=== PATIENT | male | born 1965 | race Asian ===

== ENCOUNTER 2016-09-29 11:42 | Inpatient (IN) | payer OTHER ==
[2016-09-29 11:50] VITALS: BMI 18.1
--- NOTE | 2016-09-29 14:34 | HP ---
COWS - Scale Resting Pulse: 0= [place] 80 or Below Admission ROS BHS - HPI Allergies/Adverse Reactions: Allergies Allergy/AdvReac Type Severity Reaction Status Date / Time No Known Allergies Allergy Verified 09/29/16 12:46 - Ebola screening Have you traveled outside of the country in the last 21 days: No Have you had contact with anyone from an Ebola affected area: No Have you been sick,other than usual withdrawal symptoms: No Patient History - Patient Medical History Hx Asthma: No Hx Chronic Obstructive Pulmonary Disease (COPD): No Hx Cardiac Disorders: No Hx Hypertension: Yes Hx Seizures: No Hx Diabetes: No Hx Gastrointestinal Disorders: No Hx Genitourinary Disorders: No Hx Sexually Transmitted Disorders: No Hx Renal Disease (ESRD): No Hx Depression: No Hx Suicide Attempt: No Hx Schizophrenia: No - Patient Surgical History Past Surgical History: No - PPD History Previous Implant?: Yes Documented Results: Negative w/o proof Implanted On Prior [facility] Admission?: No - Smoking Cessation Smoking history: Former smoker Have you smoked in the past 12 months: No If you are a former smoker, when did you quit?: 2001 - Substances Abused Alcohol Route: Oral Frequency: Daily Amount used: 3-4 40 OZ BEERS Age of first use: 15 Date of Last Use: 09/29/16 Admission Physical Exam BHS - Vital Signs Vital Signs: Vital Signs - 24 hr 09/29/16 11:48 Temperature 96.1 F L Pulse Rate 78 Respiratory 18 Rate Blood Pressure 137/71 BHS Breath Alcohol Content Breath Alcohol Content: 0.090 Urine Drug Screen - Results Drug Screen Negative: Yes
--- NOTE | 2016-09-29 14:41 | HP ---
CIWA Score - CIWA Score Nausea/Vomitin-No Nausea/No Vomiting Muscle Tremors: 4-Moderate,w/Arms Extend Anxiety: 3 Agitation: 4-Moderately Restless Paroxysmal Sweats: 3 Orientation: 0-Oriented Tacttile Disturbances: 0-None Auditory Disturbances: 0-None Visual Disturbances: 0-None Headache: 1-Very Mild CIWA-Ar Total Score: 15 Admission ROS BHS - HPI Chief Complaint: I am here to detox. Allergies/Adverse Reactions: Allergies Allergy/AdvReac Type Severity Reaction Status Date / Time No Known Allergies Allergy Verified 09/29/16 12:46 History of Present Illness: pt is a 51yr old male with a history of alcohol dependence seeking detox for treatment. Exam Limitations: No Limitations - Ebola screening Have you traveled outside of the country in the last 21 days: No Have you had contact with anyone from an Ebola affected area: No Have you been sick,other than usual withdrawal symptoms: No - Review of Systems Constitutional: Chills, Diaphoresis, Weight Stable EENT: reports: No Symptoms Reported Respiratory: reports: No Symptoms reported Cardiac: reports: No Symptoms Reported GI: reports: Nausea, Poor Fluid Intake : reports: No Symptoms Reported Musculoskeletal: reports: No Symptoms Reported Integumentary: reports: Rash (psorisis legs and back) Neuro: reports: Tingling, Tremors Endocrine: reports: Excessive Sweating, Flushing, Intolerance to Cold, Intolerance to Heat Hematology: reports: No Symptoms Reported Psychiatric: reports: Judgement Intact, Mood/Affect Appropiate, Orientated x3, Agitated, Anxious, Depressed Other Systems: Reviewed and Negative Patient History - Patient Medical History Hx Anemia: No Hx Asthma: No Hx Chronic Obstructive Pulmonary Disease (COPD): No Hx Cancer: No Hx Cardiac Disorders: No Hx Congestive Heart Failure: No Hx Hypertension: Yes Hx Hypercholesterolemia: No Hx Pacemaker: No HX Cerebrovascular Accident: No Hx Seizures: No Hx Dementia: No Hx Diabetes: No Hx Gastrointestinal Disorders: No Hx Liver Disease: No Hx Genitourinary Disorders: No Hx Sexually Transmitted Disorders: No Hx Renal Disease (ESRD): No Hx Thyroid Disease: No Hx Human Immunodeficiency Virus (HIV): No (negative) Hx Hepatitis C: No (negative) Hx Depression: No Hx Suicide Attempt: No (denies) Hx Bipolar Disorder: No Hx Schizophrenia: No Other Medical History: anxiety - Patient Surgical History Past Surgical History: No - PPD History Previous Implant?: Yes Documented Results: Negative w/o proof Implanted On Prior [facility] Admission?: No PPD to be Administered?: Yes - Reproductive History Patient is a Female of Child Bearing Age (11 -55 yrs old): No - Smoking Cessation Smoking history: Former smoker Have you smoked in the past 12 months: No If you are a former smoker, when did you quit?: 2001 Hx Chewing Tobacco Use: No Initiated information on smoking cessation: No - Substance & Tx. History Hx Alcohol Use: Yes Hx Substance Use: No Substance Use Type: Alcohol Hx Substance Use Treatment: Yes - Substances Abused Alcohol Route: Oral Frequency: Daily Amount used: 3-4 40 OZ BEERS Age of first use: 15 Date of Last Use: 09/29/16 Family Disease History - Family Disease History Family Disease History: Heart Disease: Mother (), Other: Mother Admission Physical Exam [facility] - Vital Signs Vital Signs: Vital Signs - 24 hr 09/29/16 11:48 Temperature 96.1 F L Pulse Rate 78 Respiratory 18 Rate Blood Pressure 137/71 - Physical General Appearance: Yes: Appropriately Dressed, Mild Distress, Thin, Tremorous, Irritable, Sweating, Anxious HEENTM: Yes: Normal Voice Respiratory: Yes: Lungs Clear, Normal Breath Sounds, No Respiratory Distress Neck: Yes: No masses,lesions,Nodules Breast: Yes: Within Normal Limits Cardiology: Yes: Regular Rhythm, Regular Rate, S1, S2 Abdominal: Yes: Normal Bowel Sounds, Non Tender, Soft Genitourinary: Yes: Within Normal Limits Back: Yes: Normal Inspection Musculoskeletal: Yes: full range of Motion Extremities: Yes: Normal Capillary Refill, Non-Tender, Tremors Neurological: Yes: Fully Oriented, Alert, Normal Response Integumentary: Yes: Normal Color, Rash (psoriosis to legs and back) Lymphatic: Yes: Within Normal Limits - Diagnostic (1) Alcohol dependence with uncomplicated withdrawal Current Visit: Yes Status: Chronic (2) Psoriasis Current Visit: Yes Status: Chronic (3) Hypertension Current Visit: Yes Status: Chronic Qualifiers: Hypertension type: essential hypertension Qualified Code(s): I10 - Essential (primary) hypertension Cleared for Admission S - Detox or Rehab S Level of Care: Medically Managed Detox Regimen/Protocol: Librium S Breath Alcohol Content Breath Alcohol Content: 0.090 Urine Drug Screen - Results Drug Screen Negative: Yes
[2016-09-29] MEDS ORDERED: MAGNESIUM HYDROX 2400MG/30ML ORAL SUSPENSION 30 ML CUP PO PRN (14:44)
[2016-09-29] MEDS ORDERED: chlordiazePOXIDE HCL 25 MG CAPSULE PO PRN (14:44)
[2016-09-29] MEDS ORDERED: ACETAMINOPHEN 325 MG TABLET (FP) PO PRN (14:44)
[2016-09-29] MEDS ORDERED: MAG HYDROX/AL HYDROX/SIMETH 30 ML UNIT-DOSE CUP PO PRN (14:44)
[2016-09-29] MEDS ORDERED: guaiFENesin/D-METHORPHAN HB 10 ML UNIT-DOSE CUPS PO PRN (14:44)
[2016-09-29] MEDS ORDERED: P-EPHED 60MG/TRIPROLIDI 2.5MG TABLET PO PRN (14:44)
[2016-09-29] MEDS ORDERED: hydrOXYzine PAMOATE 50 MG CAPSULE (FP) PO PRN (14:44)
[2016-09-29] MEDS ORDERED: MENTHOL/PHENOL 1 EACH UD MM PRN (14:44)
[2016-09-29] MEDS ORDERED: MAGNESIUM CITRATE 300 ML BOTTLE PO PRN (14:44)
[2016-09-29] MEDS ORDERED: IBUPROFEN 400 MG TABLET (FP) PO PRN (14:44)
[2016-09-29] MEDS ORDERED: chlordiazePOXIDE HCL 25 MG CAPSULE PO ONE (14:53)
[2016-09-29] MEDS: amLODIPine BESYLATE 10 MG TABLET (FP) PO SCH (15:39)
[2016-09-29] MEDS: chlordiazePOXIDE HCL 25 MG CAPSULE PO SCH ×2 (17:17→22:16)
[2016-09-29 18:17] LABS: URINE APPEARANCE CLEAR; URINE BILIRUBIN NEGATIVE (NEGATIVE); URINE BLOOD NEGATIVE (NEGATIVE); URINE COLOR STRAW; URINE GLUCOSE (UA) NEGATIVE (NEGATIVE); URINE KETONE NEGATIVE (NEGATIVE); URINE LEUK ESTERASE NEGATIVE (NEGATIVE); URINE NITRITE NEGATIVE (NEGATIVE); URINE PROTEIN NEGATIVE (NEGATIVE); URINE UROBILINOGEN NEGATIVE E.U./dl (0.2-1.0)
[2016-09-29] MEDS: THIAMINE HCL 100 MG TABLET (FP) PO SCH (22:16)
[2016-09-29] MEDS: diphenhydrAMINE HCL 50 MG CAPSULE PO PRN (22:17)
[2016-09-30] MEDS: chlordiazePOXIDE HCL 25 MG CAPSULE PO SCH ×4 (05:57→22:16)
[2016-09-30] MEDS: PRENATAL VITAMINS W/ FOLIC ACID TABLET (FP) PO SCH (10:18)
[2016-09-30] MEDS: amLODIPine BESYLATE 10 MG TABLET (FP) PO SCH (10:18)
[2016-09-30 10:27] LABS: MCH 32.1 pg (25.7-33.7); MCHC 34.1 g/dl (32.0-35.9); MEAN CELL VOLUME 94.2 fl (80-96); PLATELET COUNT 201 K/MM3 (134-434); RDW 14.7 % (11.9-15.9); WHITE BLOOD COUNT 5.5 K/mm3 (4.0-10.0)
[2016-09-30 11:07] LABS: ALK PHOS 120 U/L (45-117); ANION GAP 14 (8-16); BILIRUBIN,TOTAL 0.8 mg/dL (0.2-1.0); CALCIUM 9.2 mg/dL (8.5-10.1); CO2 25 mmol/L (21-32); CREATININE 0.7 mg/dL (0.7-1.3); GLUCOSE,RANDOM 101 mg/dL (74-106); SGOT/AST 51 U/L (15-37); SGPT/ALT 43 U/L (12-78); TOT PROT 7.7 g/dl (6.4-8.2)
--- NOTE | 2016-09-30 13:16 | CONSULT ---
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 Substance Abuse History: - Smoking Cessation. Smoking history: Former smoker. Have you smoked in the past 12 months: No. If you are a former smoker, when did you quit?: 2001. Hx Chewing Tobacco Use: No. Initiated information on smoking cessation: No. - Substance & Tx. History. Hx Alcohol Use: Yes. Hx Substance Use: No. Substance Use Type: Alcohol. Hx Substance Use Treatment: Yes. - Substances Abused. Alcohol. Route: Oral. Frequency: Daily. Amount used: 3-4 40 OZ BEERS. Age of first use: 15. Date of Last Use: . Confirmed by patient. Medical History: Hypertension. Psychiatric History: Diagnosed with MDD and Anxiety Disorder.Prescribed lexapro (dose not recalled by patient).Mr Cardona gets psychiatric outpatient services at the [facility] in [facility].No history of psychiatric hospitalizations.Patient denies history of suicide attempts. Physical/Sexual Abuse/Trauma History: Patient denies. Additional Comment: Drug Screen is negative. Mental Status Exam - Mental Status Exam Alert and Oriented to: Time, Place, Person Cognitive Function: Good Patient Appearance: Well Groomed Mood: Hopeful, Euthymic Affect: Appropriate, Normal Range Patient Behavior: Fatigued, Appropriate, Cooperative (friendly and well-mannered ) Speech Pattern: Clear, Appropriate (bilingual) Voice Loudness: Normal Thought Process: Goal Oriented Thought Disorder: Not Present Hallucinations: Denies Suicidal Ideation: Denies Homicidal Ideation: Denies Insight/Judgement: Fair Sleep: Fair Appetite: Good (observed eating his meal) Muscle strength/Tone: Normal Gait/Station: Normal Psychiatric Findings - Problem List ([place] 1, 2,3) (1) Alcohol dependence with uncomplicated withdrawal Current Visit: Yes Status: Acute (2) MDD (major depressive disorder) Current Visit: Yes Status: Chronic (3) Hypertension Current Visit: Yes Status: Chronic Qualifiers: Hypertension type: essential hypertension Qualified Code(s): I10 - Essential (primary) hypertension (4) Psoriasis Current Visit: Yes Status: Chronic - Initial Treatment Plan Initial Treatment Plan: Psychoeducation.Detoxification.Lexapro 20 mg po daily.Confirmed by pharmacy claims of 08/21/16 @ [facility].Side effects/ benefits discussed with patient.He agrees with careplan.Observation.
--- NOTE | 2016-09-30 13:23 | EKG ---
Test Reason : Blood Pressure : / mmHG Vent. Rate : 070 BPM Atrial Rate : 070 BPM P-R Int : 174 ms QRS Dur : 084 ms QT Int : 382 ms P-R-T Axes : 066 043 049 degrees QTc Int : 412 ms POOR DATA QUALITY, INTERPRETATION MAY BE ADVERSELY AFFECTED NORMAL SINUS RHYTHM POSSIBLE LEFT ATRIAL ENLARGEMENT BORDERLINE ECG NO PREVIOUS ECGS AVAILABLE Confirmed by JACKIE KIRKPATRICK, SALO ([id number]) on 09/30/2016 1:22:56 PM Referred By: Confirmed By:SALO MEJIA MD
--- NOTE | 2016-09-30 14:29 | PN ---
S CIWA - CIWA Score Nausea/Vomitin-Mild Nausea/No Vomiting Muscle Tremors: 4-Moderate,w/Arms Extend Anxiety: 4-Mod. Anxious/Guarded Agitation: 3 Paroxysmal Sweats: 3 Orientation: 0-Oriented Tacttile Disturbances: 0-None Auditory Disturbances: 0-None Visual Disturbances: 0-None Headache: 0-None Present CIWA-Ar Total Score: 15 BHS Progress Note (SOAP) Subjective: Sweating,anxiety,tremors,restless,interrupted sleep Objective: 09/30/16 14:28 Vital Signs - 8 hr 09/30/16 09/30/16 09/30/16 06:33 09:17 13:17 Temperature 97.1 F L 97.5 F L 95.9 F L Pulse Rate 66 104 H 95 H Respiratory 18 20 20 Rate Blood Pressure 122/62 121/72 140/70 Laboratory Tests 09/29/16 09/30/16 09/30/16 14:00 06:00 06:00 WBC 5.5 RBC 4.35 Hgb 14.0 Hct 41.0 MCV 94.2 MCHC 34.1 RDW 14.7 Plt Count 201 MPV 8.0 Sodium 138 Potassium 4.0 Chloride 99 Carbon Dioxide 25 Anion Gap 14 BUN 6 L Creatinine 0.7 Creat Clearance w eGFR > 60 Random Glucose 101 Calcium 9.2 Total Bilirubin 0.8 AST 51 H ALT 43 Alkaline Phosphatase 120 H Total Protein 7.7 Albumin 4.0 Urine Color Straw Urine Appearance Clear Urine pH 7.0 Ur Specific [place] 1.003 Urine Protein Negative Urine Glucose (UA) Negative Urine Ketones Negative Urine Blood Negative Urine Nitrite Negative Urine Bilirubin Negative Urine Urobilinogen Negative Ur Leukocyte Esterase Negative RPR Titer 09/30/16 06:00 WBC RBC Hgb Hct MCV MCHC RDW Plt Count MPV Sodium Potassium Chloride Carbon Dioxide Anion Gap BUN Creatinine Creat Clearance w eGFR Random Glucose Calcium Total Bilirubin AST ALT Alkaline Phosphatase Total Protein Albumin Urine Color Urine Appearance Urine pH Ur Specific Gregory Urine Protein Urine Glucose (UA) Urine Ketones Urine Blood Urine Nitrite Urine Bilirubin Urine Urobilinogen Ur Leukocyte Esterase RPR Titer Nonreactive labs noted Assessment: 09/30/16 14:29 Withdrawal sx. Plan: Continue detox
[2016-09-30] MEDS: THIAMINE HCL 100 MG TABLET (FP) PO SCH (22:15)
[2016-09-30] MEDS: diphenhydrAMINE HCL 50 MG CAPSULE PO PRN (22:15)
[2016-10-01] MEDS: chlordiazePOXIDE HCL 25 MG CAPSULE PO SCH ×2 (05:35→10:26)
[2016-10-01] MEDS: PRENATAL VITAMINS W/ FOLIC ACID TABLET (FP) PO SCH (10:25)
[2016-10-01] MEDS: ESCITALOPRAM OXALATE 20 MG TABLET (FP) PO SCH (10:26)
[2016-10-01] MEDS: amLODIPine BESYLATE 10 MG TABLET (FP) PO SCH (10:26)
--- NOTE | 2016-10-01 11:04 | PN ---
[facility] CIWA - CIWA Score Nausea/Vomitin-No Nausea/No Vomiting Muscle Tremors: 4-Moderate,w/Arms Extend Anxiety: 4-Mod. Anxious/Guarded Agitation: 3 Paroxysmal Sweats: 3 Orientation: 0-Oriented Tacttile Disturbances: 0-None Auditory Disturbances: 0-None Visual Disturbances: 0-None Headache: 0-None Present CIWA-Ar Total Score: 14 S Progress Note (SOAP) Subjective: Sweating,interrupted sleep,restless,tremors,anxiety Objective: 10/01/16 11:03 Vital Signs - 8 hr 10/01/16 10/01/16 10/01/16 03:22 06:19 09:26 Temperature 96.2 F L 97.6 F Pulse Rate 74 101 H Respiratory 18 18 20 Rate Blood Pressure 124/70 116/70 Laboratory Last Values WBC 5.5 K/mm3 (4.0-10.0) 09/30/16 06:00 RBC 4.35 M/mm3 (4.00-5.60) 09/30/16 06:00 Hgb 14.0 GM/dL (11.7-16.9) 09/30/16 06:00 Hct 41.0 % (35.4-49) 09/30/16 06:00 MCV 94.2 fl (80-96) 09/30/16 06:00 MCHC 34.1 g/dl (32.0-35.9) 09/30/16 06:00 RDW 14.7 % (11.9-15.9) 09/30/16 06:00 Plt Count 201 K/MM3 (134-434) 09/30/16 06:00 MPV 8.0 fl (7.5-11.1) 09/30/16 06:00 Sodium 138 mmol/L (136-145) 09/30/16 06:00 Potassium 4.0 mmol/L (3.5-5.1) 09/30/16 06:00 Chloride 99 mmol/L (98-107) 09/30/16 06:00 Carbon Dioxide 25 mmol/L (21-32) 09/30/16 06:00 Anion Gap 14 (8-16) 09/30/16 06:00 BUN 6 mg/dL (7-18) L 09/30/16 06:00 Creatinine 0.7 mg/dL (0.7-1.3) 09/30/16 06:00 Creat Clearance w eGFR > 60 (>60) 09/30/16 06:00 Random Glucose 101 mg/dL (74-106) 09/30/16 06:00 Calcium 9.2 mg/dL (8.5-10.1) 09/30/16 06:00 Total Bilirubin 0.8 mg/dL (0.2-1.0) 09/30/16 06:00 AST 51 U/L (15-37) H 09/30/16 06:00 ALT 43 U/L (12-78) 09/30/16 06:00 Alkaline Phosphatase 120 U/L (45-117) H 09/30/16 06:00 Total Protein 7.7 g/dl (6.4-8.2) 09/30/16 06:00 Albumin 4.0 g/dl (3.4-5.0) 09/30/16 06:00 Urine Color Straw 09/29/16 14:00 Urine Appearance Clear 09/29/16 14:00 Urine pH 7.0 (5.0-8.0) 09/29/16 14:00 Ur Specific [place] 1.003 (1.001-1.035) 09/29/16 14:00 Urine Protein Negative (NEGATIVE) 09/29/16 14:00 Urine Glucose (UA) Negative (NEGATIVE) 09/29/16 14:00 Urine Ketones Negative (NEGATIVE) 09/29/16 14:00 Urine Blood Negative (NEGATIVE) 09/29/16 14:00 Urine Nitrite Negative (NEGATIVE) 09/29/16 14:00 Urine Bilirubin Negative (NEGATIVE) 09/29/16 14:00 Urine Urobilinogen Negative E.U./dl (0.2-1.0) 09/29/16 14:00 Ur Leukocyte Esterase Negative (NEGATIVE) 09/29/16 14:00 RPR Titer Nonreactive (NONREACTIVE) 09/30/16 06:00 labs noted Assessment: 10/01/16 11:03 Withdrawal sx. Plan: Continue detox
[2016-10-01] MEDS: ARTIFICIAL TEARS (POLYVINYL ALCOHOL 1.4%) OPTH DROPS OU SCH ×3 (14:31→22:25)
[2016-10-01] MEDS: chlordiazePOXIDE 5 MG CAPSULE PO SCH ×2 (17:34→22:25)
[2016-10-01] MEDS: LOPERAMIDE HCL 2 MG CAPSULE PO PRN (18:25)
[2016-10-01] MEDS: THIAMINE HCL 100 MG TABLET (FP) PO SCH (22:25)
[2016-10-01] MEDS: diphenhydrAMINE HCL 50 MG CAPSULE PO PRN (22:25)
[2016-10-02] MEDS: chlordiazePOXIDE 5 MG CAPSULE PO SCH ×2 (05:31→10:24)
[2016-10-02] MEDS: LOPERAMIDE HCL 2 MG CAPSULE PO PRN (09:16)
[2016-10-02] MEDS: amLODIPine BESYLATE 10 MG TABLET (FP) PO SCH (10:24)
[2016-10-02] MEDS: ARTIFICIAL TEARS (POLYVINYL ALCOHOL 1.4%) OPTH DROPS OU SCH ×4 (10:24→22:22)
[2016-10-02] MEDS: PRENATAL VITAMINS W/ FOLIC ACID TABLET (FP) PO SCH (10:24)
[2016-10-02] MEDS: ESCITALOPRAM OXALATE 20 MG TABLET (FP) PO SCH (10:24)
--- NOTE | 2016-10-02 11:57 | PN ---
S Progress Note (SOAP) Subjective: ANXIETY,CHILLS,DIARRHEA,INTERMITTENT SLEEP Objective: 10/02/16 11:56 Vital Signs Temperature 98.7 F 10/02/16 10:31 Pulse Rate 80 10/02/16 10:31 Respiratory Rate 18 10/02/16 10:31 Blood Pressure 104/63 10/02/16 10:31 O2 Sat by Pulse Oximetry (%) Laboratory Last Values WBC 5.5 K/mm3 (4.0-10.0) 09/30/16 06:00 RBC 4.35 M/mm3 (4.00-5.60) 09/30/16 06:00 Hgb 14.0 GM/dL (11.7-16.9) 09/30/16 06:00 Hct 41.0 % (35.4-49) 09/30/16 06:00 MCV 94.2 fl (80-96) 09/30/16 06:00 MCHC 34.1 g/dl (32.0-35.9) 09/30/16 06:00 RDW 14.7 % (11.9-15.9) 09/30/16 06:00 Plt Count 201 K/MM3 (134-434) 09/30/16 06:00 MPV 8.0 fl (7.5-11.1) 09/30/16 06:00 Sodium 138 mmol/L (136-145) 09/30/16 06:00 Potassium 4.0 mmol/L (3.5-5.1) 09/30/16 06:00 Chloride 99 mmol/L (98-107) 09/30/16 06:00 Carbon Dioxide 25 mmol/L (21-32) 09/30/16 06:00 Anion Gap 14 (8-16) 09/30/16 06:00 BUN 6 mg/dL (7-18) L 09/30/16 06:00 Creatinine 0.7 mg/dL (0.7-1.3) 09/30/16 06:00 Creat Clearance w eGFR > 60 (>60) 09/30/16 06:00 Random Glucose 101 mg/dL (74-106) 09/30/16 06:00 Calcium 9.2 mg/dL (8.5-10.1) 09/30/16 06:00 Total Bilirubin 0.8 mg/dL (0.2-1.0) 09/30/16 06:00 AST 51 U/L (15-37) H 09/30/16 06:00 ALT 43 U/L (12-78) 09/30/16 06:00 Alkaline Phosphatase 120 U/L (45-117) H 09/30/16 06:00 Total Protein 7.7 g/dl (6.4-8.2) 09/30/16 06:00 Albumin 4.0 g/dl (3.4-5.0) 09/30/16 06:00 Urine Color Straw 09/29/16 14:00 Urine Appearance Clear 09/29/16 14:00 Urine pH 7.0 (5.0-8.0) 09/29/16 14:00 Ur Specific [place] 1.003 (1.001-1.035) 09/29/16 14:00 Urine Protein Negative (NEGATIVE) 09/29/16 14:00 Urine Glucose (UA) Negative (NEGATIVE) 09/29/16 14:00 Urine Ketones Negative (NEGATIVE) 09/29/16 14:00 Urine Blood Negative (NEGATIVE) 09/29/16 14:00 Urine Nitrite Negative (NEGATIVE) 09/29/16 14:00 Urine Bilirubin Negative (NEGATIVE) 09/29/16 14:00 Urine Urobilinogen Negative E.U./dl (0.2-1.0) 09/29/16 14:00 Ur Leukocyte Esterase Negative (NEGATIVE) 09/29/16 14:00 RPR Titer Nonreactive (NONREACTIVE) 09/30/16 06:00 Assessment: 10/02/16 11:56 WITHDRAWAL SX Plan: CONTINUE DETOX IMODIUN PRN
[2016-10-02] MEDS: chlordiazePOXIDE HCL 10 MG CAPSULE PO SCH ×2 (17:33→22:21)
[2016-10-02] MEDS: diphenhydrAMINE HCL 50 MG CAPSULE PO PRN (22:21)
[2016-10-02] MEDS: THIAMINE HCL 100 MG TABLET (FP) PO SCH (22:21)
[2016-10-03] MEDS: LOPERAMIDE HCL 2 MG CAPSULE PO PRN (00:57)
[2016-10-03] MEDS: chlordiazePOXIDE HCL 10 MG CAPSULE PO SCH (05:32)
[2016-10-03 06:42] VITALS: BP 108/66; PULSE 70; TEMP 96.4
--- NOTE | 2016-10-03 16:13 | DS ---
[facility] Detox Discharge Summary Admission Date: 09/29/16 Discharge Date: 10/03/16 - History Present History: Alcohol Dependence Additional Comments: ADVISED PATIENT TO FOLLOW-UP WITH [facility] / REHAB MEDICAL PROVIDER AFTER DISCHARGE FROM DETOX FOR GENERAL MEDICAL ASSESSMENT AND FOR ABNORMAL LAB VALUES. Pertinent Past History: Psoriasis, HTN. - Physical Exam Results Vital Signs: Vital Signs Temperature 96.4 F L 10/03/16 06:41 Pulse Rate 70 10/03/16 06:41 Respiratory Rate 18 10/03/16 06:41 Blood Pressure 108/66 10/03/16 06:41 O2 Sat by Pulse Oximetry (%) Pertinent Admission Physical Exam Findings: WITHDRAWAL SYMPTOMS. Laboratory Last Values WBC 5.5 K/mm3 (4.0-10.0) 09/30/16 06:00 RBC 4.35 M/mm3 (4.00-5.60) 09/30/16 06:00 Hgb 14.0 GM/dL (11.7-16.9) 09/30/16 06:00 Hct 41.0 % (35.4-49) 09/30/16 06:00 MCV 94.2 fl (80-96) 09/30/16 06:00 MCHC 34.1 g/dl (32.0-35.9) 09/30/16 06:00 RDW 14.7 % (11.9-15.9) 09/30/16 06:00 Plt Count 201 K/MM3 (134-434) 09/30/16 06:00 MPV 8.0 fl (7.5-11.1) 09/30/16 06:00 Sodium 138 mmol/L (136-145) 09/30/16 06:00 Potassium 4.0 mmol/L (3.5-5.1) 09/30/16 06:00 Chloride 99 mmol/L (98-107) 09/30/16 06:00 Carbon Dioxide 25 mmol/L (21-32) 09/30/16 06:00 Anion Gap 14 (8-16) 09/30/16 06:00 BUN 6 mg/dL (7-18) L 09/30/16 06:00 Creatinine 0.7 mg/dL (0.7-1.3) 09/30/16 06:00 Creat Clearance w eGFR > 60 (>60) 09/30/16 06:00 Random Glucose 101 mg/dL (74-106) 09/30/16 06:00 Calcium 9.2 mg/dL (8.5-10.1) 09/30/16 06:00 Total Bilirubin 0.8 mg/dL (0.2-1.0) 09/30/16 06:00 AST 51 U/L (15-37) H 09/30/16 06:00 ALT 43 U/L (12-78) 09/30/16 06:00 Alkaline Phosphatase 120 U/L (45-117) H 09/30/16 06:00 Total Protein 7.7 g/dl (6.4-8.2) 09/30/16 06:00 Albumin 4.0 g/dl (3.4-5.0) 09/30/16 06:00 Urine Color Straw 09/29/16 14:00 Urine Appearance Clear 09/29/16 14:00 Urine pH 7.0 (5.0-8.0) 09/29/16 14:00 Ur Specific [place] 1.003 (1.001-1.035) 09/29/16 14:00 Urine Protein Negative (NEGATIVE) 09/29/16 14:00 Urine Glucose (UA) Negative (NEGATIVE) 09/29/16 14:00 Urine Ketones Negative (NEGATIVE) 09/29/16 14:00 Urine Blood Negative (NEGATIVE) 09/29/16 14:00 Urine Nitrite Negative (NEGATIVE) 09/29/16 14:00 Urine Bilirubin Negative (NEGATIVE) 09/29/16 14:00 Urine Urobilinogen Negative E.U./dl (0.2-1.0) 09/29/16 14:00 Ur Leukocyte Esterase Negative (NEGATIVE) 09/29/16 14:00 RPR Titer Nonreactive (NONREACTIVE) 09/30/16 06:00 LABS NOTED. - Treatment Hospital Course: Detox Protocol Followed, Detoxed Safely, Responded well, Discharged Condition Good Patient has Accepted a Rehab Referral to: NO - PT. ELECTING T GO HOME AT THIS TIME; AA/12-STEP PROGRAMS RECOMMENDED. - Medication Discharge Medications: Ambulatory Orders Amlodipine Besylate [Norvasc -] 10 mg PO DAILY 09/29/16 Escitalopram Oxalate [Lexapro -] 20 mg PO DAILY #30 tablet 09/30/16 - Diagnosis (1) Alcohol dependence with uncomplicated withdrawal Status: Acute (2) Hypertension Status: Chronic Qualifiers: Hypertension type: essential hypertension Qualified Code(s): I10 - Essential (primary) hypertension (3) MDD (major depressive disorder) Status: Chronic Qualifiers: Major depression recurrence: recurrent Active/Remission status: remission status unspecified Qualified Code(s): F33.9 - Major depressive disorder, recurrent, unspecified (4) Psoriasis Status: Chronic - AMA Did Patient Leave Against Medical Advice: No
== END 2016-10-03 09:16 | disposition home or self-care (01) | DRG 775 ==
LOC: YASAS 11:42 → Y3N 14:43
PROVIDERS: ADMIT Internal Medicine; ATTEND Internal Medicine
PROC: HZ2ZZZZ Detoxification Services for Substance Abuse Treatment (ICD-10-PCS; principal; 2016-10-03)
DX: F10.230 Alcohol dependence with withdrawal, uncomplicated (principal); F33.9 Major depressive disorder, recurrent, unspecified; I10 Essential (primary) hypertension; F41.9 Anxiety disorder, unspecified; L40.8 Other psoriasis; Z59.0 Homelessness
CPT/HCPCS: 36415; 80053; 81003; 85027; 86593; 93005; 93010